=== PATIENT | male | born 1965 | race Caucasian/White ===

== ENCOUNTER 2017-11-25 18:36 | Emergency (ER) | payer OTHER ==
[~2017-11-25] VITALS: Ht 188 cm; Wt 80.7 kg
[2017-11-25 18:53] VITALS: BP 115/88
== END 2017-11-25 20:30 | disposition home or self-care (01) ==
LOC: ER 18:36
DX: T70.20XA Unspecified effects of high altitude, initial encounter (principal); Z90.49 Acquired absence of other specified parts of digestive tract; X58.XXXA Exposure to other specified factors, initial encounter